=== PATIENT | female | born 1980 | race Caucasian/White ===

== ENCOUNTER 2024-04-23 07:04 | Day surgery (SDC) | payer OTHER, SELFPAY ==
[2024-04-21 14:09] VITALS: BMI 35.0
[2024-04-23 07:18] VITALS: BP 127/67; PULSE 110; RESP 20; TEMP 36.3; O2SAT 96; BMI 35.8
[2024-04-23] MEDS: Lactated Ringers 1,000 ML 100 ML IVCONT (07:42)
--- NOTE | 2024-04-23 08:00 | HO.ANESPROP2 ---
Documented by User: Maryjane Mcpherson NP 04/22/24 09:31 HPI - Anesthesia Eval Consult details Narrative: 44yo F for Upper Endoscopy and Colonoscopy [facility] Past Medical History Medical History (Updated 04/21/24 @ 14:08 by Chelsey Scruggs RN) Glaucoma Back pain Asthma GERD (gastroesophageal reflux disease) Surgical History Surgical History (Updated 04/21/24 @ 14:08 by Chelsey Scruggs RN) History of intestinal surgery Hx of eye surgery History of esophagogastroduodenoscopy (EGD) Social History Social History (Updated 04/21/24 @ 14:09 by Chelsey Scruggs RN) Patient Tobacco Use Status: Never used Tobacco Have you been hit, kicked, punched, or otherwise hurt by someone within the past year? If so, by whom?: No Are you DNR?: No Advance Directives: No Advance Directives Information Provided: Yes Nutrition Risks: No Nutritional Risk Meds Allergies Allergy/AdvReac Type Severity Reaction Status Date / Time azithromycin Allergy Severe Anaphylaxis Verified 04/23/24 07:32 doxycycline Allergy Intermediate Nausea Verified 04/23/24 07:28 gluten Allergy Mild Unknown Verified 04/23/24 07:32 Yeast Allergy Unknown Unknown Verified 04/21/24 14:07 vinegar Allergy Unknown Unknown Uncoded 04/21/24 14:07 Home Medications ?Medication ?Instructions ?Recorded ?Confirmed ?Last Taken ?Type brinzolamide 1 %-brimonidine 0.2 % 1 drp ophthalmic-Right TID 04/21/24 04/21/24 Unknown History eye drops,suspension (Simbrinza) ipratropium 20 mcg-albuterol 100 1 puff inhalation QID PRN wheezing 04/21/24 04/21/24 Unknown History mcg/actuation mist for inhalation (Combivent Respimat) montelukast 10 mg tablet 10 mg PO DAILY 04/21/24 04/21/24 Unknown History norethindrone acetate 5 mg tablet 5 mg PO DAILY 04/21/24 04/21/24 Unknown History omeprazole 40 mg capsule,delayed 40 mg PO DAILY 04/21/24 04/21/24 Unknown History release Exam Height,Weight and Vital Signs: Height 5 ft 7 in Weight 101.378 kg Assessment and Plan Assessment Anesthesia Assessment: Chart Reviewed Documented by User: Mitzi Thompson DO 04/23/24 08:21 PMFSH Past Medical History Medical History (Updated 04/21/24 @ 14:08 by Chelsey Scruggs RN) Glaucoma Back pain Asthma GERD (gastroesophageal reflux disease) Family History Family history of problems with anesthesia: No Surgical History Surgical History (Updated 04/21/24 @ 14:08 by Chelsey Scruggs RN) History of intestinal surgery Hx of eye surgery History of esophagogastroduodenoscopy (EGD) History of Problems with Anesthesia: No Social History Social History (Updated 04/21/24 @ 14:09 by Chelsey Scruggs RN) Patient Tobacco Use Status: Never used Tobacco Have you been hit, kicked, punched, or otherwise hurt by someone within the past year? If so, by whom?: No Are you DNR?: No Advance Directives: No Advance Directives Information Provided: Yes Nutrition Risks: No Nutritional Risk Meds Allergies Allergy/AdvReac Type Severity Reaction Status Date / Time azithromycin Allergy Severe Anaphylaxis Verified 04/23/24 07:32 doxycycline Allergy Intermediate Nausea Verified 04/23/24 07:28 gluten Allergy Mild Unknown Verified 04/23/24 07:32 Yeast Allergy Unknown Unknown Verified 04/21/24 14:07 vinegar Allergy Unknown Unknown Uncoded 04/21/24 14:07 Home Medications ?Medication ?Instructions ?Recorded ?Confirmed ?Last Taken ?Type brinzolamide 1 %-brimonidine 0.2 % 1 drp ophthalmic-Right TID 04/21/24 04/21/24 Unknown History eye drops,suspension (Simbrinza) ipratropium 20 mcg-albuterol 100 1 puff inhalation QID PRN wheezing 04/21/24 04/21/24 Unknown History mcg/actuation mist for inhalation (Combivent Respimat) montelukast 10 mg tablet 10 mg PO DAILY 04/21/24 04/21/24 Unknown History norethindrone acetate 5 mg tablet 5 mg PO DAILY 04/21/24 04/21/24 Unknown History omeprazole 40 mg capsule,delayed 40 mg PO DAILY 04/21/24 04/21/24 Unknown History release Exam Exam Date and Time: 04/23/24 0800 Height,Weight and Vital Signs: Height 5 ft 7 in Weight 101.378 kg Vital Signs Temperature 97.3 F 04/23/24 07:18 Pulse Rate 110 H 04/23/24 07:18 Respiratory Rate 20 04/23/24 07:18 Blood Pressure 127/67 04/23/24 07:18 Pulse Oximetry 96 04/23/24 07:18 Oxygen Delivery Method Room Air 04/23/24 07:18 Temperature 97.3 F 04/23/24 07:18 Pulse Rate 110 H 04/23/24 07:18 Respiratory Rate 20 04/23/24 07:18 Blood Pressure 127/67 04/23/24 07:18 Pulse Oximetry 96 04/23/24 07:18 Oxygen Delivery Method Room Air 04/23/24 07:18 Airway Mallampati Class: II TM Dist: >3cm Neck ROM: Full Loose/Missing/Broken Teeth: Yes (poor dentition - multiple missing and chipped teeth) Heart: S1S2 Lungs: CTAB Assessment and Plan Assessment Anesthesia Assessment: Anesthesia Plan Discussed and Chart Reviewed Final Anesthetic Review Family History of Problems with Anesthesia: No History of Problems with Anesthesia: No NPO: Yes ASA Class: II Final Preanesthetic Review: No Changes in Pt Med Stat, Meds/Allgs Chart Reviewed, Consent Obtained/Reviewed and Anes Risks/Benef Reviewed Patient Risk: Low Procedure Risk: Low Anesthetic Plan Anesthetic Plan: MAC: and Agree w/ Assess. and Plan Disposition: Standard PACU
[2024-04-23 08:16] LABS: UPreg QC Valid YES; Urine Pregnancy NEGATIVE (NEGATIVE)
--- NOTE | 2024-04-23 09:15 | MHC.SHP ---
Pre-Procedural Eval Section A - 24 Hr Update-Section A only Date of Service: 04/23/24 Section B - Complete if H&P > 30 days Chief Complaint: Gastro-esophageal reflux disease without esophagit Details of Present Illness: see H&P no changes Relevant Family History (Specify if Yes): No Relevant Social History: None Present Medications: see Short Stay Collaborative assessment Medical History: No relevant PMH History of Previous Operations: No relevant previous surgery Allergies: Allergies Allergy/AdvReac Type Severity Reaction Status Date / Time azithromycin Allergy Severe Anaphylaxis Verified 04/23/24 07:32 doxycycline Allergy Intermediate Nausea Verified 04/23/24 07:28 gluten Allergy Mild Unknown Verified 04/23/24 07:32 Yeast Allergy Unknown Unknown Verified 04/21/24 14:07 vinegar Allergy Unknown Unknown Uncoded 04/21/24 14:07 Review of Systems Sugical H&P ROS: Negative: Constitution, Cardiovascular, Respiratory, Neurological, Psychiatric, Hem-Onc, Allergic/Immunologic, Gastrointestinal, Genitourinary, Musculoskeletal, Integumentary, Endocrine and Eyes/Ears/Nose/Throat Exam Surgical H&P Exam: Normal: HEENT, Normal: Heart, Normal: Lungs, Normal: Extremities, Normal: Abdomen, Normal: Skin and Normal: Neurological Plan Diagnosis/Plan: Unchanged I have reviewed the history and physical and performed a pertinent physical examination on my patient. No changes have occurred unless specified. Time Spent With Patient Time: Total time managing care of this patient today ____ minutes.
[2024-04-23 10:02] VITALS: BP 108/64; PULSE 106; RESP 14; TEMP 36.3; O2SAT 98
[2024-04-23 10:17] VITALS: BP 113/70; PULSE 107; RESP 16; O2SAT 98
--- NOTE | 2024-04-23 10:21 | OP_ITS ---
DATE OF SERVICE: 04/23/2024 SURGEON: Jim King MD INDICATIONS: 1. Gastroesophageal reflux disease. 2. Colon cancer screening. PREOPERATIVE DIAGNOSIS: POSTOPERATIVE DIAGNOSIS: PROCEDURE PERFORMED: Upper endoscopy with biopsy, colonoscopy to the terminal ileum with biopsy. ESTIMATED BLOOD LOSS: COMPLICATIONS: ANESTHESIA: Monitored anesthesia care. ASSISTANTS: SPECIMENS: DESCRIPTION OF PROCEDURE: A history and physical was performed. The risks and benefits of the procedure were explained to the patient and informed consent was obtained. The patient was placed in the left lateral decubitus position. The Olympus video gastroscope was introduced into the esophagus, stomach, and duodenum. Examination was performed and the scope was removed. She was repositioned for colonoscopy. A digital rectal exam was performed and was found to be normal. The Olympus pediatric video colonoscope was introduced into the rectum and advanced to the cecum. The cecum was identified by transillumination, palpation, and identification of ileocecal valve. Examination was performed and the scope was removed. She tolerated both procedures well and was returned to recovery area in stable condition. FINDINGS: Upper endoscopy, esophagus: There was mild distal esophagitis for 1 cm at the EG junction. This was biopsied. There was a 4 cm hiatal hernia. Stomach: The stomach showed no evidence of masses, ulcers, or polyps. Antral biopsies were obtained. Duodenum: The bulb and 2nd portion were normal. Biopsies were obtained from the 2nd portion. Colonoscopy: The terminal ileum was normal. The visualized colonic mucosa was within normal limits without evidence of masses or ulcers. No polyps were identified. The quality of the prep was good. Random sigmoid biopsies were obtained to evaluate for microscopic colitis. Retroflexed examination was normal. IMPRESSION: 1. Normal colonoscopy. 2. Hiatal hernia. 3. Esophagitis. RECOMMENDATION: Follow up the biopsy results. Screening colonoscopy in 10 years MD [place] Enriquez/SONNY / [id number] [facility]
[2024-04-23] MEDS: Acetaminophen 325 MG TABLET 650 MG PO (10:24)
[2024-04-23 10:31] VITALS: BP 122/79; PULSE 99; RESP 14; TEMP 36.3; O2SAT 99
== END 2024-04-23 11:08 | disposition home or self-care (01) ==
PROVIDERS: Nurse Practitioner; Visit Provider Internal Medicine Gastroenterology
PROC: (CPT 43239; principal; 2024-04-23 08:20)
DX: K22.10 Ulcer of esophagus without bleeding (principal); K29.50 Unspecified chronic gastritis without bleeding; K44.9 Diaphragmatic hernia without obstruction or gangrene; K21.9 Gastro-esophageal reflux disease without esophagitis; Z12.11 Encounter for screening for malignant neoplasm of colon; J45.909 Unspecified asthma, uncomplicated; Z79.899 Other long term (current) drug therapy
CPT/HCPCS: 43239; 45380; 81025; 88305; 88312; 88342; J1100; J1596; J2250; J2704